=== PATIENT | male | born 1970 | race Caucasian/White ===

== ENCOUNTER → 2021-07-18 | Outpatient (CLI) | payer BC ==
[2021-07-18 16:20] LABS: African American GFR (CKD) >90 (>60 ml/min/1.73 sqM); Blood Urea Nitrogen 14 mg/dL (9-20); Non-African American GFR(CKD) >90 (>60 ml/min/1.73 sqM)
--- NOTE | 2021-07-19 08:03 | CT ---
EXAMINATION TYPE: CT abdomen pelvis wo/w con DATE OF EXAM: 07/18/2021 COMPARISON: None HISTORY: Abdominal pain, constipation CT DLP: 1893.10 mGycm CONTRAST: CT scan of the abdomen and pelvis is performed with Oral Contrast and with IV Contrast, patient injec jarvis with 100 mL of Isovue 300. FINDINGS: LUNG BASES-: No visible nodule. No infiltrate. LIVER/GB: No calcified gallstones. No space occupying hepatic lesion. Biliary tree is of normal ca liber. PANCREAS: No inflammation. No distinct mass. SPLEEN: No splenic enlargement. No lesion seen. ADRENALS: No nodule. No thickening. KIDNEYS/BLADDER: No hydronephrosis. No nephrolithiasis. No distinct renal mass. Urinary bladder wa ll thickening may be related to poor distention. Correlate for cystitis. BOWEL: Normal appendix. Normal bowel caliber. No inflammation. Mild fecal stasis noted. GENITAL ORGANS: No gross abnormality. LYMPH NODES: No greater than 1cm abdominal or pelvic lymph nodes are appreciated. AORTA: No significant abnormality. OSSEOUS STRUCTURES: No significant abnormality is seen. OTHER: No significant additional abnormality is seen. IMPRESSION: 1. Mild constipation. 2. Urinary bladder wall thickening. Correlate for cystitis.
== END | disposition home or self-care (01) ==
LOC: RADCTMAIN 15:13
PROVIDERS: ATTEND Family Medicine
DX: K59.00 Constipation, unspecified (principal); N32.89 Other specified disorders of bladder
CPT/HCPCS: 82565; 84520; 74178; 36415; Q9967

== ENCOUNTER → 2022-02-05 | Outpatient (CLI) | payer BC ==
--- NOTE | 2022-02-05 15:41 | XR ---
EXAMINATION TYPE: XR lumbar spine 2 or 3V DATE OF EXAM: 02/05/2022 COMPARISON: None HISTORY: Back pain TECHNIQUE: 3 view lumbar spine FINDINGS: There 5 lumbar-type vertebral bodies. Pedicles are intact. There is loss of disc at L4-5. R emaining disc heights are preserved. Vertebral body heights are preserved. IMPRESSION: 1. Degenerative disc changes L4-5.
--- NOTE | 2022-02-05 15:44 | XR ---
EXAMINATION TYPE: XR thoracic spine complete DATE OF EXAM: 02/05/2022 COMPARISON: None HISTORY: Back pain TECHNIQUE: 3 view thoracic spine FINDINGS: There are 12 thoracic type vertebral bodies. The pedicles are intact. Disc heights are pres erved. Vertebral body heights are preserved. IMPRESSION: 1. Normal three-view thoracic spine
== END | disposition home or self-care (01) ==
LOC: RADXRMAIN 14:43
PROVIDERS: ATTEND Student in an Organized Health Care Education/Training Program
DX: M51.36 Other intervertebral disc degeneration, lumbar region (principal)
CPT/HCPCS: 72072; 72100

== ENCOUNTER → 2022-11-18 | Outpatient (CLI) | payer BC ==
--- NOTE | 2022-11-18 08:51 | US ---
EXAMINATION TYPE: US abdomen complete DATE OF EXAM: 11/18/2022 COMPARISON: CT abdomen and pelvis July 18, 2021 CLINICAL HISTORY: K58.1 IRRITABLE BOWEL SYNDROME ,R14.0 GASEOUS. Patient states he gets generalized r ight and left sided pain that comes and goes. TECHNIQUE: Multiple sonographic images of the abdomen are obtained. FINDINGS: EXAM MEASUREMENTS: Liver Length: 15.4 cm Gallbladder Wall: 0.2 cm CBD: 0.4 cm Spleen: 10.3 cm Right Kidney: 10.8 x 5.2 x 6.1 cm Left Kidney: 10.6 x 4.9 x 5.7 cm Pancreas: Tail obscured by overlying bowel gas Liver: wnl Gallbladder: wnl Evidence for sonographic Juárez's sign: neg CBD: wnl Spleen: wnl Right Kidney: No hydronephrosis or masses seen Left Kidney: No hydronephrosis or masses seen Upper IVC: wnl Abd Aorta: No AAA visualized at time of exam The visualized liver is homogenous. The intrahepatic portion of the IVC and visualized abdominal aor ta are within normal limits. There is no evidence of shadowing mobile cholelithiasis. Common bile d uct is unremarkable. The visualized portions of the pancreas are homogenous. The spleen is unremark able. Kidneys are symmetric and free of hydronephrosis. No renal lesions are seen. IMPRESSION: No acute findings are evident.
== END | disposition home or self-care (01) ==
LOC: RADUSWWP 06:57
PROVIDERS: ATTEND Student in an Organized Health Care Education/Training Program
DX: K58.1 Irritable bowel syndrome with constipation (principal); R14.0 Abdominal distension (gaseous)
CPT/HCPCS: 76700

== ENCOUNTER → 2023-05-27 | Outpatient (CLI) | payer BC ==
[2023-05-27 14:51] LABS: African American GFR (CKD) >90 (>60 ml/min/1.73 sqM); Blood Urea Nitrogen 17 mg/dL (9-20); Non-African American GFR(CKD) >90 (>60 ml/min/1.73 sqM)
--- NOTE | 2023-05-28 06:53 | CT ---
EXAMINATION TYPE: CT soft tissue neck w con CT DLP: 385.8 mGycm, Automated exposure control for dose reduction was used. DATE OF EXAM: 05/27/2023 3:23 PM COMPARISON: Soft tissue neck radiograph 12/22/2022. CLINICAL INDICATION:Male, 52 years old with history of J35.3; PHH, pt states feels like something is stuck in throat TECHNIQUE: Standard enhanced CT of the neck following intravenous administration of 100 cc of Isovue 300. Axial sections with coronal and sagittal reformats were obtained. FINDINGS: Brain: Visualized portions are grossly unremarkable. 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 The mastoid air cells are clear. Remaining paranasal sinuses are clear. Suprahyoid Neck: The oropharynx, oral cavity, parapharyngeal and retropharyngeal spaces are clear and symmetric. The nasopharynx is unremarkable. Infrahyoid Neck: The larynx, hypopharynx, and supraglottic area are clear and symmetric. Parotid Glands: Unremarkable. Submandibular Glands: Unremarkable. Musculoskeletal: No acute osseous pathology. Lymph nodes: Multiple nonenlarged lymph nodes are seen along both anterior chains of the neck. Vascular structures: Minimal atherosclerotic calcifications of the internal carotid arteries. Thoracic Inlet/airway: Airway is patent. No radiopaque foreign body identified. Mild paraseptal emphy sematous changes. Soft tissues/Thyroid: Thyroid and remainder of the soft tissues are unremarkable. Other: none. IMPRESSION No definite evidence for significant abnormality. No radiopaque foreign body identified.
== END | disposition home or self-care (01) ==
LOC: RADCTMAIN 13:45
PROVIDERS: ATTEND Otolaryngology
DX: J35.3 Hypertrophy of tonsils with hypertrophy of adenoids (principal)
CPT/HCPCS: 82565; 84520; 70491; 36415; Q9967

== ENCOUNTER 2024-05-06 14:03 | Observation (INO) | payer BC ==
--- NOTE | 2024-05-06 14:23 | ED ---
General Adult HPI - General Chief complaint: Neuro Symptoms/Deficit Stated complaint: L arm numbness, Chest pain Time Seen by Provider: 05/06/24 14:11 Source: patient, RN notes reviewed Mode of arrival: ambulatory Limitations: no limitations - History of Present Illness Initial comments: Patient is a 53-year-old male presenting to the emergency department as a transfer from urgent care. Patient has had left arm paresthesia all day today. Patient states no discomfort of his arm. Patient states there is a little bit of tightness of his left neck. On further discussion patient admits that the left upper chest may be a little bit tight as well. No weakness. No headache. No confusion. No speech problems. No history of similar symptoms previously. - Related Data Home Medications Medication Instructions Recorded Confirmed Atenolol/Chlorthalidone 1 tab PO DAILY 05/06/24 05/06/24 [Atenolol/Chlorthalidone 50-25] Budesonide/Formoterol Fumarate 1 puff INHALATION RT-DAILY 05/06/24 05/06/24 [Symbicort 160-4.5 Mcg Inhaler] Dicyclomine [Bentyl] 10 mg PO TID PRN 05/06/24 05/06/24 Linagliptin [Tradjenta] 5 mg PO DAILY 05/06/24 05/06/24 Omeprazole [PriLOSEC] 20 mg PO DAILY 05/06/24 05/06/24 Rosuvastatin Calcium [Crestor] 40 mg PO HS 05/06/24 05/06/24 lisinopriL [Zestril] 2.5 mg PO DAILY 05/06/24 05/06/24 Allergies Allergy/AdvReac Type Severity Reaction Status Date / Time Penicillins AdvReac Unknown Verified 05/06/24 15:26 Childhood Review of Systems ROS Statement: Those systems with pertinent positive or pertinent negative responses have been documented in the HPI. ROS Other: All systems not noted in ROS Statement are negative. Constitutional: Denies: fever Eyes: Denies: eye pain ENT: Denies: ear pain Respiratory: Denies: cough Cardiovascular: Reports: as per HPI, chest pain Endocrine: Denies: fatigue Gastrointestinal: Denies: abdominal pain Genitourinary: Denies: dysuria Musculoskeletal: Denies: back pain Neurological: Reports: as per HPI, paresthesias. Denies: headache, weakness Past Medical History Past Medical History: Hyperlipidemia, Hypertension History of Any Multi-Drug Resistant Organisms: None Reported Past Surgical History: Tonsillectomy Past Psychological History: No Psychological Hx Reported Smoking Status: Never smoker Past Alcohol Use History: Occasional Past Drug Use History: Marijuana General Exam Limitations: no limitations General appearance: alert, in no apparent distress Head exam: Present: normocephalic Eye exam: Present: normal appearance, PERRL, EOMI ENT exam: Present: normal oropharynx Neck exam: Present: normal inspection Respiratory exam: Present: normal lung sounds bilaterally Cardiovascular Exam: Present: regular rate, normal rhythm Expanded Peripheral pulses: 2+: Radial (R), Radial (L), Posterior Tibialis (R), Posterior Tibialis (L) GI/Abdominal exam: Present: soft. Absent: tenderness Extremities exam: Present: normal inspection. Absent: pedal edema, calf tenderness Neurological exam: Present: alert, oriented X3, CN II-XII intact. Absent: motor sensory deficit Expanded Neurological exam: Present: protecting the airway Speech: Present: fluid speech Cranial nerves: EOM's Intact: Normal, Facial Sensation: Normal Cerebellar function: Finger to Nose: Normal Sensory exam: Upper Extremity Light Touch: Normal, Lower Extremity Light Touch: Normal Motor strength exam: RUE: 5, LUE: 5, RLE: 5, LLE: 5 Eye Response: (4) open spontaneously Motor Response: (6) obeys commands Verbal Response: (5) oriented Psychiatric exam: Present: normal affect, normal mood Skin exam: Present: normal color Course Vital Signs 05/06/24 05/06/24 05/06/24 14:05 14:14 15:20 Temperature 97.9 F 98.1 F Pulse Rate 78 72 65 Respiratory 20 18 17 Rate Blood Pressure 133/84 155/85 146/83 O2 Sat by Pulse 99 99 99 Oximetry EKG Findings - EKG Results: EKG: interpreted by ERMD (Incomplete right bundle branch block. nonspecific ST-T.), sinus rhythm, normal axis Medical Decision Making - Medical Decision Making Was pt. sent in by a medical professional or institution (, PA, GRAVITY PROSPECTING OPERATOR HELPER, urgent care, hospital, or retirement...) When possible be specific @ -Patient was sent by urgent care Did you speak to anyone other than the patient for history (EMS, parent, family, police, friend...)? What history was obtained from this source @ -Family is present helps provide history including presentation at urgent c are Did you review nursing and triage notes (agree or disagree)? Why? @ -I reviewed and agree with nursing and triage notes Were old charts reviewed (outside hosp., previous admission, EMS record, old EKG, old radiological studies, urgent care reports/EKG's, retirement records)? Report findings @ -No old charts were reviewed Differential Diagnosis (chest pain, altered mental status, abdominal pain women, abdominal pain men, vaginal bleeding, weakness, fever, dyspnea, syncope, headache, dizziness, GI bleed, back pain, seizure, CVA, palpatations, mental health, musculoskeletal)? @ -MDM differential chest pain. MDM differential weakness differential Chest Pain: Stable Angina, Unstable Angina, STEMI, NSTEMI Aortic Dissection, Pneumothorax, Musculoskeletal, Esophageal Spasm GERD, Cholecystitis, Pancreatitis, Zoster, this is not meant to be an all-inclusive list. Differential Weakness: Hypoglycemia, shock, sepsis, hyponatremia, anemia, infection, HI, ETOH, adverse medicine reaction, overdose, stroke, this is not meant to be an all-inclusive list. EKG interpreted by me (3pts min.). @ -As above X-rays interpreted by me (1pt min.). @ -X-ray shows no acute process CT interpreted by me (1pt min.). @ -CT scan of the brain does not reveal acute abnormality U/S interpreted by me (1pt. min.). @ -None done What testing was considered but not performed or refused? (CT, X-rays, U/S, labs)? Why? @ -None What meds were considered but not given or refused? Why? @ -None Did you discuss the management of the patient with other professionals (professionals i.e. DrDayan, PA, GRAVITY PROSPECTING OPERATOR HELPER, lab, RT, psych nurse, social media marketer, fairground operator, teacher, infantry officer, vocational case manager)? Give summary @ -Case discussed with Dr. Ojeda who will admit covering hospital call Was smoking cessation discussed for >3mins.? @ -No Was critical care preformed (if so, how long)? @ -No Were there social determinants of health that impacted care today? How? (Homelessness, low income, unemployed, alcoholism, drug addiction, transportation, low edu. Level, literacy, decrease access to med. care, senior living, rehab)? @ -No Was there de-escalation of care discussed even if they declined (Discuss DNR or withdrawal of care, Hospice)? DNR status @ -No What co-morbidities impacted this encounter? (DM, HTN, Smoking, COPD, CAD, Cancer, CVA, ARF, Chemo, Hep., AIDS, mental health diagnosis, sleep apnea, morbid obesity)? @ -None Was patient admitted / discharged? Hospital course, mention meds given and route, prescriptions, significant lab abnormalities, going to OR and other pertinent info. @ -Patient reevaluated. Patient and family are updated on results and plan. Patient presents with chest tightness and paresthesia left arm. Patient will be admitted. Admission orders written. Undiagnosed new problem with uncertain prognosis? @ -No Drug Therapy requiring intensive monitoring for toxicity (Heparin, Nitro, Insulin, Cardizem)? @ -No Were any procedures done? @ -No Diagnosis/symptom? @ -Chest tightness Acute, or Chronic, or Acute on Chronic? @ -Acute Uncomplicated (without systemic symptoms) or Complicated (systemic symptoms)? @ -Default Side effects of treatment? @ -No Exacerbation, Progression, or Severe Exacerbation? @ -No Poses a threat to life or bodily function? How? (Chest pain, USA, HI, pneumonia, PE, COPD, DKA, ARF, appy, cholecystitis, CVA, Diverticulitis, Homicidal, Suicidal, threat to staff... and all critical care pts) @ -No - Lab Data Result diagrams: 05/06/24 14:29 05/06/24 14:29 Lab Results 05/06/24 05/06/24 05/06/24 Range/Units 14:29 14:29 14:29 WBC 10.5 (3.8-10.6) k/uL RBC 5.02 (4.30-5.90) m/uL Hgb 15.2 (13.0-17.5) gm/dL Hct 46.4 (39.0-53.0) % MCV 92.5 (80.0-100.0) fL MCH 30.3 (25.0-35.0) pg MCHC 32.8 (31.0-37.0) g/dL RDW 12.1 (11.5-15.5) % Plt Count 278 (150-450) k/uL MPV 8.9 Neutrophils % 70 % Lymphocytes % 21 % Monocytes % 6 % Eosinophils % 1 % Basophils % 1 % Neutrophils # 7.4 (1.3-7.7) k/uL Lymphocytes # 2.2 (1.0-4.8) k/uL Monocytes # 0.6 (0-1.0) k/uL Eosinophils # 0.1 (0-0.7) k/uL Basophils # 0.1 (0-0.2) k/uL PT 10.0 (10.0-12.5) sec INR 0.9 (<1.2) APTT 22.4 (22.0-30.0) sec D-Dimer 0.23 (<0.60) mg/L FEU Sodium 136 L (137-145) mmol/L Potassium 3.6 (3.5-5.1) mmol/L Chloride 100 (98-107) mmol/L Carbon Dioxide 23 (22-30) mmol/L Anion Gap 13 mmol/L BUN 19 (9-20) mg/dL Creatinine 0.89 (0.66-1.25) mg/dL Est GFR (CKD-EPI)AfAm >90 (>60 ml/min/1.73 sqM) Est GFR (CKD-EPI)NonAf >90 (>60 ml/min/1.73 sqM) Glucose 119 H (74-99) mg/dL Calcium 10.0 (8.4-10.2) mg/dL Magnesium 1.7 (1.6-2.3) mg/dL Total Bilirubin 0.8 (0.2-1.3) mg/dL AST 31 (17-59) U/L ALT 31 (4-49) U/L Alkaline Phosphatase 68 (38-126) U/L Troponin I (0.000-0.034) ng/mL Total Protein 7.5 (6.3-8.2) g/dL Albumin 5.1 H (3.5-5.0) g/dL 05/06/24 Range/Units 14:29 WBC (3.8-10.6) k/uL RBC (4.30-5.90) m/uL Hgb (13.0-17.5) gm/dL Hct (39.0-53.0) % MCV (80.0-100.0) fL MCH (25.0-35.0) pg MCHC (31.0-37.0) g/dL RDW (11.5-15.5) % Plt Count (150-450) k/uL MPV Neutrophils % % Lymphocytes % % Monocytes % % Eosinophils % % Basophils % % Neutrophils # (1.3-7.7) k/uL Lymphocytes # (1.0-4.8) k/uL Monocytes # (0-1.0) k/uL Eosinophils # (0-0.7) k/uL Basophils # (0-0.2) k/uL PT (10.0-12.5) sec INR (<1.2) APTT (22.0-30.0) sec D-Dimer (<0.60) mg/L FEU Sodium (137-145) mmol/L Potassium (3.5-5.1) mmol/L Chloride (98-107) mmol/L Carbon Dioxide (22-30) mmol/L Anion Gap mmol/L BUN (9-20) mg/dL Creatinine (0.66-1.25) mg/dL Est GFR (CKD-EPI)AfAm (>60 ml/min/1.73 sqM) Est GFR (CKD-EPI)NonAf (>60 ml/min/1.73 sqM) Glucose (74-99) mg/dL Calcium (8.4-10.2) mg/dL Magnesium (1.6-2.3) mg/dL Total Bilirubin (0.2-1.3) mg/dL AST (17-59) U/L ALT (4-49) U/L Alkaline Phosphatase (38-126) U/L Troponin I <0.012 (0.000-0.034) ng/mL Total Protein (6.3-8.2) g/dL Albumin (3.5-5.0) g/dL Disposition Clinical Impression: Chest tightness Disposition: ADMITTED IP TO THIS HOSP Is patient prescribed a controlled substance at d/c from ED?: No Referrals: Brandan Brand DO [Primary Care Provider] - 1-2 days Time of Disposition: 16:19
--- NOTE | 2024-05-06 14:58 | CT ---
EXAMINATION TYPE: CT brain wo con DATE OF EXAM: 05/06/2024 COMPARISON: 04/01/2014 HISTORY: L arm parasthesia CT DLP: 1125.[address] of the brain was performed. The ventricles, basal cisterns and sulci overlying the cerebral convexities demonstrate mild enlargem ent. There is no evidence for intracranial hemorrhage or sulcal effacement. There is decreased attenuation about the periventricular white matter and deep white matter of both c erebral hemispheres, compatible with chronic small vessel ischemia. Differential diagnosis does inclu de demyelination. No mass effects are seen.No midline shift. Osseous calvarium is intact. If symptoms persist consider MRI. IMPRESSION: 1. Age related atrophic and chronic small vessel ischemic change without acute intracranial process s een at this time.
[2024-05-06 15:09] LABS: Basophils # (A) 0.1 k/uL (0-0.2); Basophils % (A) 1 %; Eosinophils # (A) 0.1 k/uL (0-0.7); Eosinophils % (A) 1 %; HCT 46.4 % (39.0-53.0); HGB 15.2 gm/dL (13.0-17.5); Lymphocytes # (A) 2.2 k/uL (1.0-4.8); Lymphocytes % (A) 21 %; MCH 30.3 pg (25.0-35.0); MCHC 32.8 g/dL (31.0-37.0); MCV 92.5 fL (80.0-100.0); Mean Platelet Volume 8.9; Monocytes # (A) 0.6 k/uL (0-1.0); Monocytes % (A) 6 %; Neutrophils # (A) 7.4 k/uL (1.3-7.7); Neutrophils % (A) 70 %; Platelet Count 278 k/uL (150-450); RBC 5.02 m/uL (4.30-5.90); RDW 12.1 % (11.5-15.5); WBC 10.5 k/uL (3.8-10.6)
[2024-05-06 15:19] LABS: ALT 31 U/L (4-49); AST 31 U/L (17-59); African American GFR (CKD) >90 (>60 ml/min/1.73 sqM); Albumin 5.1 g/dL (3.5-5.0); Alkaline Phosphatase 68 U/L (38-126); Anion Gap 13 mmol/L; Blood Urea Nitrogen 19 mg/dL (9-20); Carbon Dioxide 23 mmol/L (22-30); Chloride 100 mmol/L (98-107); Glucose 119 mg/dL (74-99); Magnesium 1.7 mg/dL (1.6-2.3); Non-African American GFR(CKD) >90 (>60 ml/min/1.73 sqM); Potassium 3.6 mmol/L (3.5-5.1); Sodium 136 mmol/L (137-145); Total Bilirubin 0.8 mg/dL (0.2-1.3); Total Protein 7.5 g/dL (6.3-8.2)
--- NOTE | 2024-05-06 15:23 | XR ---
EXAMINATION TYPE: XR chest 2V DATE OF EXAM: 05/06/2024 HISTORY: Shortness of breath. COMPARISON: None. TECHNIQUE: Single view of the chest is submitted. FINDINGS: Demonstrated are scattered senescent parenchymal change. There is no evidence for focal infiltrate. The heart is stable. Hilar and mediastinal structures are within normal limits. Degenerative changes are seen of the dorsal spine. IMPRESSION: 1. Chronic changes without evidence for acute pulmonary disease.
[2024-05-06 15:27] LABS: INR 0.9 (<1.2); Partial Thromboplastin Time 22.4 sec (22.0-30.0)
[2024-05-06] MEDS ORDERED: NITROGLYCERIN SL TABS 0.4 MG TAB SUBLINGUAL PRN (16:19)
[2024-05-06] MEDS ORDERED: DICYCLOMINE 10 MG CAP PO PRN (16:21)
[2024-05-06] MEDS: ASPIRIN 81 MG PO STA (16:39)
[2024-05-06] MEDS: NITROGLYCERIN OINT 1 INCH/GM PACKET TOPICAL SCH (16:41)
[2024-05-06] MEDS ORDERED: DEXTROSE 50% SYRINGE 50 ML IVP PRN ×2 (17:14)
[2024-05-06 17:29] LABS: Glucose,Whole Blood 102 mg/dL (70-110)
[2024-05-06] MEDS: INSULIN ASPART (NovoLOG) 100 UNIT/ML VIAL SQ SCH (17:29)
[2024-05-06] MEDS: MAGNESIUM OXIDE 400 MG TAB PO STA (17:47)
--- NOTE | 2024-05-06 18:12 | P.HPIM ---
History of Present Illness H&P Date: 05/06/24 History of Presenting Illness: Patient is a 53-year-old male with a past medical history of hypertension, hyperlipidemia, GERD, and type II [id number] diabetes mellitus. He presented to the hospital via EMS as a transfer from urgent care where patient presented with left arm paresthesia/numbness accompanied by pain/tightness to left lateral neck and left anterior chest. Patient reports he began experiencing sudden onset left arm numbness/tingling extending throughout his entire arm patient reports this was persistent and did not resolve so he went to the urgent care for evaluation and was transferred to our facility for further recommendation via EMS. He states he also believes he may have had some tightness in his left neck/shoulder region radiating down into the left side of his chest but reports this was mild. He denied experiencing any weakness in his left arm but reports complete numbness with tingling sensation throughout. He denies any injuries or cervical pain/discomfort, headache, lightheadedness, dizziness, changes in vision or hearing, difficulties with or changes in speech, dysphagia, palpitations, shortness of breath, cough or congestion, back pain, nausea, vomiting, or experiencing any swelling or weakness in his extremities. Upon arrival to our facility, patient underwent evaluation in the emergency department. Vital signs upon arrival show blood pressure 133/84, heart rate 78, respiratory rate 20, temp 97.9 F, and SpO2 of 99% on room air. EKG was completed showing normal sinus rhythm at 71 bpm with an incomplete right bundle branch block with QRS duration of 100 ms and no noted T wave or ST abnormalities showing no signs of acute ischemia upon personal review and interpretation. Chest x-ray completed negative for acute cardiopulmonary process. CT brain completed negative for acute intracranial process revealing age-related atrophic and chronic small vessel ischemic changes. Labs completed and reviewed. CBC unremarkable. Coagulation profile normal findings. D-dimer negative at 0.23. BMP unremarkable. Blood glucose 119. Magnesium slightly low at 1.7. Liver profile unremarkable. And troponin was negative at less than 0.012. Patient was admitted under our services with consultation to cardiology and neurology. Review of systems: Pertinent positives and negatives as discussed in HPI, a complete review of systems was performed and all other systems are negative. Physical exam: Vital signs reviewed and stable. General: Nontoxic, no distress and appears stated age. Derm: Skin warm and dry, normal coloration for ethnicity. Head: Atraumatic, normocephalic and symmetric. Eyes: EOMs intact, no lid lag, and anicteric sclera Mouth: no lip lesions, mucus membranes moist Cardiovascular: regular rate and rhythm with normal S1S2, no murmur, positive posterior tibial pulses bilaterally, and cap refill < 2 seconds. Lungs: Respirations even, regular, and unlabored on room air. Lungs CTA bilaterally, no rhonchi, no rales, no wheezing, and no accessory muscle usage. Abdominal: soft, nontender to palpation, no guarding, no appreciable organomegaly Ext: ROM intact. No gross muscle atrophy, no edema, no contractures Neuro: Speech clear, face symmetrical and CN II-XII grossly intact with no noted focal neuro deficits Psych: Alert and oriented to person, place, time, and situation. Appropriate and pleasant affect. Assessment and Plan of Care: Left arm numbness and paresthesias Chest and neck tightness Hypertension Hyperlipidemia -Cardiology consulted, appreciate recommendations -Neurology consulted, appreciate recommendation -Telemetry monitoring -Trend troponins -Cardiac diet, NPO at midnight -Aspirin 81 mg daily, atenolol 50 mg daily, atorvastatin 80 mg nightly, lisinopril 2.5 mg daily, and sublingual nitro 0.4 mg tablets every 5 minutes as needed for chest pain. -Lipid profile and hemoglobin A1c with a.m. labs. -Echocardiogram Type 2 diabetes mellitus -Hold Tradjenta and place patient on glycemic protocol with NovoLog sliding scale. GERD -Continue GI prophylaxis with Protonix 40 mg daily. Data and imaging reviewed: -As stated above in HPI. The patient is admitted with an anticipated less than 2 midnight stay for evaluation of chest pain, neck pain, and left arm paresthesias CODE STATUS: Full code DVT prophylaxis: Heparin Anticipated discharge date: 24 to [address]: Home Patient was seen independently by Nurse Practitioner. This document was prepared using [employer] dictation software. Please allow for errors in professor of economics while rare they do occur. I reviewed the documentation as provided by the GARRISON above, who is the original author of this note. I agree with the documented assessment and plan, with the following changes: none Past Medical History Past Medical History: Hyperlipidemia, Hypertension History of Any Multi-Drug Resistant Organisms: None Reported Past Surgical History: Tonsillectomy Past Psychological History: No Psychological Hx Reported Smoking Status: Never smoker Past Alcohol Use History: Occasional Past Drug Use History: Marijuana Medications and Allergies Home Medications Medication Instructions Recorded Confirmed Type Atenolol/Chlorthalidone 1 tab PO DAILY 05/06/24 05/06/24 History [Atenolol/Chlorthalidone 50-25] Budesonide/Formoterol Fumarate 1 puff INHALATION RT-DAILY 05/06/24 05/06/24 History [Symbicort 160-4.5 Mcg Inhaler] Dicyclomine [Bentyl] 10 mg PO TID PRN 05/06/24 05/06/24 History Linagliptin [Tradjenta] 5 mg PO DAILY 05/06/24 05/06/24 History Omeprazole [PriLOSEC] 20 mg PO DAILY 05/06/24 05/06/24 History Rosuvastatin Calcium [Crestor] 40 mg PO HS 05/06/24 05/06/24 History lisinopriL [Zestril] 2.5 mg PO DAILY 05/06/24 05/06/24 History Ezetimibe [Zetia] 10 mg PO DAILY 30 Days #30 tab 05/09/24 Rx Thiamine [Vitamin B-1] 100 mg PO DAILY 30 Days #30 tab 05/09/24 Rx Allergies Allergy/AdvReac Type Severity Reaction Status Date / Time Penicillins AdvReac Unknown Verified 05/06/24 15:26 Childhood Physical Exam Vitals: Vital Signs Temp Pulse Resp BP Pulse Ox 05/06/24 15:20 98.1 F 65 17 146/83 99 05/06/24 14:14 72 18 155/85 99 05/06/24 14:05 97.9 F 78 20 133/84 99 Intake and Output 05/06/24 05/06/24 05/06/24 06:59 14:59 22:59 Other: Weight 112.037 kg Results CBC & Chem 7: 05/09/24 07:01 05/09/24 07:01 Labs: Abnormal Lab Results - Last 24 Hours (Table) 05/06/24 Range/Units 14:29 Sodium 136 L (137-145) mmol/L Glucose 119 H (74-99) mg/dL Albumin 5.1 H (3.5-5.0) g/dL
[2024-05-06] MEDS: ATORVASTATIN 80 MG TAB PO SCH (20:07)
[2024-05-06 21:02] LABS: Glucose,Whole Blood 123 mg/dL (70-110)
[2024-05-07] MEDS: HEPARIN SODIUM,PORCINE 5,000 UNIT/ML 1 ML VIAL SQ SCH (00:31)
[2024-05-07 07:30] LABS: Glucose,Whole Blood 132 mg/dL (70-110)
[2024-05-07] MEDS: SYMBICORT 160-4.5 MCG INHALER INHALATION SCH (08:04)
[2024-05-07] MEDS ORDERED: ASPIRIN 325 MG TAB PO SCH (09:00)
[2024-05-07] MEDS ORDERED: LINAGLIPTIN 5 MG TABLET PO SCH (09:00)
[2024-05-07] MEDS: ASPIRIN 81 MG PO SCH (09:25)
[2024-05-07] MEDS: atenoloL 50 MG TAB PO SCH (09:25)
[2024-05-07] MEDS: PANTOPRAZOLE 40 MG TABLET PO SCH (09:26)
[2024-05-07 10:26] LABS: African American GFR (CKD) >90 (>60 ml/min/1.73 sqM); Anion Gap 4 mmol/L; Blood Urea Nitrogen 16 mg/dL (9-20); Calcium 9.6 mg/dL (8.4-10.2); Carbon Dioxide 32 mmol/L (22-30); Chloride 100 mmol/L (98-107); Glucose 126 mg/dL (74-99); Non-African American GFR(CKD) >90 (>60 ml/min/1.73 sqM); Potassium 3.9 mmol/L (3.5-5.1); Sodium 136 mmol/L (137-145)
[2024-05-07 10:36] LABS: HCT 47.2 % (39.0-53.0); HGB 15.6 gm/dL (13.0-17.5); MCH 30.3 pg (25.0-35.0); MCHC 33.1 g/dL (31.0-37.0); MCV 91.7 fL (80.0-100.0); Mean Platelet Volume 9.5; Platelet Count 260 k/uL (150-450); RBC 5.15 m/uL (4.30-5.90); RDW 12.5 % (11.5-15.5)
--- NOTE | 2024-05-07 11:23 | P.CRDCN ---
History of Present Illness Consult date: 05/07/24 Requesting physician: Tulio Gastelum Reason for Consult (text): cp Chief complaint: left arm numbness/tingling History of present illness: This a pleasant 53-year-old gentleman with no past cardiac history. Has a history of hypertension, hyperlipidemia and prediabetes. He presented with com plaints of left arm numbness and tingling that started yesterday morning after he got out of bed. He had also noted some mild tightness in his left neck and shoulder area. Denies any complaints of chest discomfort. He has had no shortness of breath, dizziness, lightheadedness or syncope. He has had no palpitations. He has had no orthopnea or PND and no edema. Opponents have been negative x 3 and EKG was unremarkable. Overall his symptoms in his arm have mostly subsided. Vital signs have been stable. Past Medical History Past Medical History: Hyperlipidemia, Hypertension History of Any Multi-Drug Resistant Organisms: None Reported Past Surgical History: Tonsillectomy Past Psychological History: No Psychological Hx Reported Smoking Status: Never smoker Past Alcohol Use History: Occasional Past Drug Use History: Marijuana Medications and Allergies Home Medications Medication Instructions Recorded Confirmed Type Atenolol/Chlorthalidone 1 tab PO DAILY 05/06/24 05/06/24 History [Atenolol/Chlorthalidone 50-25] Budesonide/Formoterol Fumarate 1 puff INHALATION RT-DAILY 05/06/24 05/06/24 History [Symbicort 160-4.5 Mcg Inhaler] Dicyclomine [Bentyl] 10 mg PO TID PRN 05/06/24 05/06/24 History Linagliptin [Tradjenta] 5 mg PO DAILY 05/06/24 05/06/24 History Omeprazole [PriLOSEC] 20 mg PO DAILY 05/06/24 05/06/24 History Rosuvastatin Calcium [Crestor] 40 mg PO HS 05/06/24 05/06/24 History lisinopriL [Zestril] 2.5 mg PO DAILY 05/06/24 05/06/24 History Allergies Allergy/AdvReac Type Severity Reaction Status Date / Time Penicillins AdvReac Unknown Verified 05/06/24 15:26 Childhood Physical Exam Vitals: Vital Signs Temp Pulse Resp BP Pulse Ox 05/07/24 09:19 63 18 122/83 97 05/07/24 06:23 71 18 126/71 100 05/07/24 04:05 65 18 124/79 95 05/07/24 00:34 62 18 112/71 98 05/06/24 21:46 64 18 132/75 99 05/06/24 18:25 98.2 F 75 17 130/70 98 05/06/24 17:25 98.4 F 65 17 140/87 99 05/06/24 16:00 63 16 136/82 99 05/06/24 15:20 98.1 F 65 17 146/83 99 05/06/24 14:14 72 18 155/85 99 05/06/24 14:05 97.9 F 78 20 133/84 99 PHYSICAL EXAMINATION: This is a 53-year-old gentleman in no apparent distress at the time of my examination. VITAL SIGNS: Reviewed. HEENT: Head is atraumatic, normocephalic. Pupils are equal, round. Sclerae anicteric. Conjunctivae are clear. Mucous membranes of the mouth are moist. Neck is supple. There is no elevated jugular venous pressure. No carotid bruit is heard. CHEST EXAMINATION: Clear to auscultation bilaterally. No wheezes rales or rhonchi. Respirations even and nonlabored. HEART EXAMINATION: Heart regular, positive S1 and S2. No S3. No S4. No clicks, rubs or murmurs. ABDOMEN: Soft, nontender. Bowel sounds are heard. No organomegaly noted. EXTREMITIES: 2+ peripheral pulses with no evidence of peripheral edema and no calf tenderness noted. NEUROLOGIC EXAMINATION: Patient is awake, alert and oriented x3. Results 05/07/24 09:10 05/07/24 09:10 Cardiac Enzymes 05/06/24 05/06/24 05/06/24 Range/Units 14:29 14:29 17:19 AST 31 (17-59) U/L Troponin I <0.012 <0.012 (0.000-0.034) ng/mL 05/06/24 Range/Units 20:23 AST (17-59) U/L Troponin I <0.012 (0.000-0.034) ng/mL Coagulation 05/06/24 Range/Units 14:29 PT 10.0 (10.0-12.5) sec APTT 22.4 (22.0-30.0) sec CBC 05/06/24 05/07/24 Range/Units 14:29 09:10 WBC 10.5 7.0 (3.8-10.6) k/uL RBC 5.02 5.15 (4.30-5.90) m/uL Hgb 15.2 15.6 (13.0-17.5) gm/dL Hct 46.4 47.2 (39.0-53.0) % Plt Count 278 260 (150-450) k/uL Comprehensive Metabolic Panel 05/06/24 05/07/24 Range/Units 14:29 09:10 Sodium 136 L 136 L (137-145) mmol/L Potassium 3.6 3.9 (3.5-5.1) mmol/L Chloride 100 100 (98-107) mmol/L Carbon Dioxide 23 32 H (22-30) mmol/L BUN 19 16 (9-20) mg/dL Creatinine 0.89 0.83 (0.66-1.25) mg/dL Glucose 119 H 126 H (74-99) mg/dL Calcium 10.0 9.6 (8.4-10.2) mg/dL AST 31 (17-59) U/L ALT 31 (4-49) U/L Alkaline Phosphatase 68 (38-126) U/L Total Protein 7.5 (6.3-8.2) g/dL Albumin 5.1 H (3.5-5.0) g/dL Current Medications Generic Name Dose Route Start Last Admin Trade Name Freq PRN Reason Stop Dose Admin Aspirin 81 mg 05/07/24 09:00 05/07/24 09:25 Aspirin 81 Mg PO 81 mg DAILY NICOLE Administration Atenolol 50 mg 05/07/24 09:00 05/07/24 09:25 Atenolol 50 Mg Tab PO 50 mg DAILY NICOLE Administration Atorvastatin Calcium 80 mg 05/06/24 21:00 05/06/24 20:07 Atorvastatin 80 Mg Tab PO 80 mg HS NICOLE Administration Budesonide/Formoterol Fumarate 1 puff 05/07/24 08:00 05/07/24 08:04 Symbicort 160-4.5 Mcg Inhaler INHALATION 1 puff RT-DAILY NICOLE Administration Dextrose/Water 25 ml 05/06/24 17:14 Dextrose 50% Syringe 50 Ml IVP PER PROTOCOL PRN Hypoglycemia Protocol Dextrose/Water 50 ml 05/06/24 17:14 Dextrose 50% Syringe 50 Ml IVP PER PROTOCOL PRN Hypoglycemia Protocol Dicyclomine HCl 10 mg 05/06/24 16:21 Dicyclomine 10 Mg Cap PO TID PRN GI Upset Heparin Sodium (Porcine) 5,000 unit 05/07/24 00:00 05/07/24 09:17 Heparin Sodium,Porcine 5,000 Unit/Ml 1 Ml Vial SQ Not Given Q8HR NICOLE Insulin Aspart 0 unit 05/06/24 17:30 05/07/24 08:24 Insulin Aspart (Novolog) 100 Unit/Ml Vial SQ Not Given ACHS [facility] Protocol Lisinopril 2.5 mg 05/07/24 09:00 05/07/24 09:25 Lisinopril 2.5 Mg Tab PO 2.5 mg DAILY NICOLE Administration Nitroglycerin 0.4 mg 05/06/24 16:19 Nitroglycerin Sl Tabs 0.4 Mg Tab SUBLINGUAL Q5M PRN Chest Pain Nitroglycerin 0.5 inch 05/06/24 16:30 05/07/24 09:52 Nitroglycerin Oint 1 Inch/Gm Packet TOPICAL Not Given Q6H NICOLE Pantoprazole Sodium 40 mg 05/07/24 09:00 05/07/24 09:26 Pantoprazole 40 Mg Tablet PO 40 mg DAILY NICOLE Administration 05/07/24 09:10 05/07/24 09:10 Assessment and Plan Assessment: #1 left arm numbness and tingling, neurology has been consulted, could be related to cervical radiculopathy #2 left neck tightness, acute coronary event has been ruled out, troponins negative x 3 and EKG unremarkable #3 hypertension, well-controlled #4 hyperlipidemia #5 prediabetes Plan: From cardiology's perspective we will obtain a 2D echo with Doppler study to assess cardiac structure and function. If there are no significant abnormalit ies patient may be discharged home and follow-up as an outpatient for further cardiac workup. [employer] note has been reviewed, I agree with a documented findings and plan of care. Patient was seen and examined.
[2024-05-07 12:04] LABS: Glucose,Whole Blood 180 mg/dL (70-110)
--- NOTE | 2024-05-07 12:46 | P.PN ---
Subjective Progress Note Date: 05/07/24 Hospital Course: Patient is a 53-year-old male with a past medical history of hypertension, hyperlipidemia, GERD, and type II [id number] diabetes mellitus. He presented to the hospital via EMS as a transfer from urgent care where patient presented with left arm paresthesia/numbness accompanied by pain/tightness to left lateral neck and left anterior chest. Patient reports he began experiencing sudden onset left arm numbness/tingling extending throughout his entire arm patient reports this was persistent and did not resolve so he went to the urgent care for evaluation and was transferred to our facility for further recommendation via EMS. He states he also believes he may have had some tightness in his left neck/shoulder region radiating down into the left side of his chest but reports this was mild. He denied experiencing any weakness in his left arm but reports complete numbness with tingling sensation throughout. He denies any injuries or cervical pain/discomfort, headache, lightheadedness, dizziness, changes in vision or hearing, difficulties with or changes in speech, dysphagia, palpitations, shortness of breath, cough or congestion, back pain, nausea, vomiting, or experiencing any swelling or weakness in his extremities. U ritchie arrival to our facility, patient underwent evaluation in the emergency department. Vital signs upon arrival show blood pressure 133/84, heart rate 78, respiratory rate 20, temp 97.9 F, and SpO2 of 99% on room air. EKG was completed showing normal sinus rhythm at 71 bpm with an incomplete right bundle branch block with QRS duration of 100 ms and no noted T wave or ST abnormalities showing no signs of acute ischemia upon personal review and interpretation. Chest x-ray completed negative for acute cardiopulmonary process. CT brain completed negative for acute intracranial process revealing age-related atrophic and chronic small vessel ischemic changes. Labs completed and reviewed. CBC unremarkable. Coagulation profile normal findings. D-dimer negative at 0.23. BMP unremarkable. Blood glucose 119. Magnesium slightly low at 1.7. Liver profile unremarkable. And troponin was negative at less than 0.012. Patient was admitted under our services with consultation to cardiology and neurology. Physical exam: Patient seen and fully evaluated at the bedside this morning. He denies any further episodes of chest or neck tightness reports continues to have a "funny feeling" in his left hand and fingers. Continues to deny weakness or any other complaints at this time. Vital signs reviewed and stable. General: Nontoxic, no distress and appears stated age. Derm: Skin warm and dry, normal coloration for ethnicity. Head: Atraumatic, normocephalic and symmetric. Eyes: EOMs intact, no lid lag, and anicteric sclera Mouth: no lip lesions, mucus membranes moist Cardiovascular: regular rate and rhythm with normal S1S2, no murmur, positive posterior tibial pulses bilaterally, and cap refill < 2 seconds. Lungs: Respirations even, regular, and unlabored on room air. Lungs CTA bilaterally, no rhonchi, no rales, no wheezing, and no accessory muscle usage. Abdominal: soft, nontender to palpation, no guarding, no appreciable o rganomegaly Ext: ROM intact. No gross muscle atrophy, no edema, no contractures Neuro: Speech clear, face symmetrical and CN II-XII grossly intact with no noted focal neuro deficits Psych: Alert and oriented to person, place, time, and situation. Appropriate and pleasant affect. Assessment and Plan of Care: Left arm numbness and paresthesias Chest and neck tightness Hypertension Hyperlipidemia -Cardiology consulted, appreciate recommendations -Neurology consulted, appreciate recommendation -Telemetry monitoring -Troponins were negative at less than 0.012 x 3 draws. -Cardiac diet -Aspirin 81 mg daily, atenolol 50 mg daily, atorvastatin 80 mg nightly, lisinopril 2.5 mg daily, and sublingual nitro 0.4 mg tablets every 5 minutes as needed for chest pain. -Lipid profile and hemoglobin A1c pending. -Echocardiogram Type 2 diabetes mellitus -Hold Tradjenta and place patient on glycemic protocol with NovoLog sliding scale. GERD -Continue GI prophylaxis with Protonix 40 mg daily. Data and imaging reviewed: -Vital signs reviewed and stable. Blood pressure 122/83, heart rate 63, respiratory rate 18, and SpO2 of 97% on room air. -Morning labs completed and reviewed. CBC unremarkable. BMP revealing hypercarbia with bicarb of 32 otherwise normal findings. Blood glucose 126. Magnesium 2.0. Troponins were trended overnight and all were negative at less than 0.012 x 3 draws. CODE STATUS: Full code DVT prophylaxis: Heparin Anticipated discharge date: 24 to [address]: Home Patient was seen independently by Nurse Practitioner. This document was prepared using [employer] dictation software. Please allow for errors in carbon rod inserter while rare they do occur. I reviewed the documentation as provided by the GARRISON above, who is the original author of this note. I agree with the documented assessment and plan, with the following changes: none Objective - Vital Signs Vital signs: Vital Signs Temp 98.2 F 05/06/24 18:25 Pulse 71 05/07/24 06:23 Resp 18 05/07/24 06:23 BP 126/71 05/07/24 06:23 Pulse Ox 100 05/07/24 06:23 FiO2 Intake & Output 05/06/24 05/07/24 05/07/24 18:59 06:59 18:59 Weight 112.037 kg - Labs CBC & Chem 7: 05/09/24 07:01 05/09/24 07:01 Labs: Abnormal Lab Results - Last 24 Hours (Table) 05/06/24 05/06/24 05/07/24 Range/Units 14:29 21:00 07:28 Sodium 136 L (137-145) mmol/L Glucose 119 H (74-99) mg/dL POC Glucose (mg/dL) 123 H 132 H (70-110) mg/dL Albumin 5.1 H (3.5-5.0) g/dL
--- NOTE | 2024-05-07 13:23 | P.CNNES ---
History of Present Illness Consult date: 05/07/24 Requesting physician: Mohit Xie Reason for Consult: left arm numbness and tingling History of Present Illness: There is a 53-year-old gentleman who presented emergency department because of left upper extremity numbness tingling. Patient stated that he woke up at 7:30 AM yesterday and he noticed his entire left side was numb and tingling and felt he had some tightness over the lateral aspect of the left neck. He denies any radiation of neck pain. Denies any weakness. His last normal state was 11pm night the night prior or at midnight. Patient is months with dry yesterday. He denies any speech difficulty. Denies any visual disturbance. Denies any weakness. Denies any chest pain. Since symptoms is improving and he only has residual left hand numbness. Denies any history of stroke or TIA. He does have underlying history of hypertension hypercholesteremia. He stated that he was notified he is prediabetic and could not tolerate metformin so he is on diet control. He states he has numbness sensation of bilateral feet and hands that are intermittent and he was notified by the primary that this is possibly Raynaud's syndrome. He denies any discoloration of the the skin. He denies being on any antiplatelet. Denies any history of A-fib. He drinks about 3 times a week but when he drinks he drinks about 6 cans of beer in a day. Denies tobacco use denies any illicit drug use. Former tobacco user. Stopped smoking about 3 years ago. Some of the work-up during this hospital visit consisted of: CBC with differential is unremarkable Chemistry panel is is 119, sodium is 136 otherwise unremarkable. Hemoglobin A1c is 6.2 Troponin On 3 different occasions were unremarkable CT of the head is reported as age-related atrophy and chronic small vessel ischemic change without acute intracranial process seen at this time. Show reviewed the CT and I agree there is no acute or subacute process. Review of Systems The positive and negative as per HPI. Past Medical History Past Medical History: Hyperlipidemia, Hypertension History of Any Multi-Drug Resistant Organisms: None Reported Past Surgical History: Tonsillectomy Past Psychological History: No Psychological Hx Reported Smoking Status: Never smoker Past Alcohol Use History: Occasional Past Drug Use History: Marijuana Medications and Allergies Home Medications Medication Instructions Recorded Confirmed Type Atenolol/Chlorthalidone 1 tab PO DAILY 05/06/24 05/06/24 History [Atenolol/Chlorthalidone 50-25] Budesonide/Formoterol Fumarate 1 puff INHALATION RT-DAILY 05/06/24 05/06/24 History [Symbicort 160-4.5 Mcg Inhaler] Dicyclomine [Bentyl] 10 mg PO TID PRN 05/06/24 05/06/24 History Linagliptin [Tradjenta] 5 mg PO DAILY 05/06/24 05/06/24 History Omeprazole [PriLOSEC] 20 mg PO DAILY 05/06/24 05/06/24 History Rosuvastatin Calcium [Crestor] 40 mg PO HS 05/06/24 05/06/24 History lisinopriL [Zestril] 2.5 mg PO DAILY 05/06/24 05/06/24 History Allergies Allergy/AdvReac Type Severity Reaction Status Date / Time Penicillins AdvReac Unknown Verified 05/06/24 15:26 Childhood Physical Examination - Vital Signs Vital Signs: Vital Signs Temp Pulse Resp BP Pulse Ox 05/07/24 13:07 63 16 119/78 98 05/07/24 12:45 65 18 114/76 98 05/07/24 09:19 63 18 122/83 97 05/07/24 06:23 71 18 126/71 100 05/07/24 04:05 65 18 124/79 95 05/07/24 00:34 62 18 112/71 98 05/06/24 21:46 64 18 132/75 99 05/06/24 18:25 98.2 F 75 17 130/70 98 05/06/24 17:25 98.4 F 65 17 140/87 99 05/06/24 16:00 63 16 136/82 99 05/06/24 15:20 98.1 F 65 17 146/83 99 05/06/24 14:14 72 18 155/85 99 05/06/24 14:05 97.9 F 78 20 133/84 99 GENERAL: The patient is lying in bed and is not in acute distress. NEUROLOGICAL: Higher mental function: The patient is awake, alert, oriented to self, place and time. Patient is following commands. No aphasia and no neglect. Cranial nerves: The pupils are round, equal and reactive to light and accommodation. Visual molina are full to confrontation throughout. Extraocular movement is intact no nystagmus is noted. Facial sensation is normal to touch throughout. The facial strength is normal throughout. Hearing is normal bilaterally to hand rub. Tongue is midline and moved [id number] without any difficulty. No dysarthria is noted. Shoulder shrug is normal bilaterally. Motor: The strength is 5 over 5 throughout. Normal tone and bulk. Cerebellum: Normal finger to nose heel to ibarra bilaterally. Sensation: Sensation is normal to touch throughout. Reflexes (right/left): Biceps 2+/2+. Otherwise rest limited since resisting even after asking to relax. Plantars are downgoing bilaterally. Results - Laboratory Findings CBC and BMP: 05/07/24 09:10 05/07/24 09:10 Abnormal Lab Findings: Abnormal Labs 05/06/24 05/06/24 05/07/24 14:29 21:00 07:28 Sodium 136 L Carbon Dioxide Glucose 119 H POC Glucose (mg/dL) 123 H 132 H Hemoglobin A1c Albumin 5.1 H 05/07/24 05/07/24 05/07/24 09:10 09:10 12:03 Sodium 136 L Carbon Dioxide 32 H Glucose 126 H POC Glucose (mg/dL) 180 H Hemoglobin A1c 6.2 H Albumin Assessment and Plan Assessment: This is a 53-year-old gentleman who presents because of paresthesia of the left upper extremity upon waking up yesterday at 7:30 AM and he feels he is having ti ghtness over the left lateral aspect of the neck but denies any radiation of neck pain. He felt his mouth was dry yesterday as well. Denies any history of stroke or TIA. He is prediabetic, hypertension, hypercholesteremia and was told possibly has Raynaud's syndrome because of his cold sensation of hands and feet by his primary doctor the patient but he denies any discoloration of the skin. Paresthesia of the left upper extremity with neck tightness that is improving but not resolved. Rule out cervical radiculopathy vs stroke/TIA Diabetic Hypertension Hypercholesteremia Cold sensation of hands and feet and was notified possible Raynaud's syndrome by his PCP Former tobacco user Alcohol use (drinks 3 times a weeks but when he drinks he drink excessive about 6 cans of beer). Plan: I ordered MRI of the brain with and without. Unlikely this will be completed b ecause of the weekend. I will pursue with CT of the neck as well as carotid duplex Patient started on aspirin 81 mg daily by primary team and was given aspirin 324 mg once. He was not on any antiplatelets prior to this. He is on Lipitor 80 mg nightly. 2D echo and lipid panel were ordered Order TSH, vitamin B12, folate. Continue neurochecks Cardiac monitoring I counseled the patient on decrease consumption of alcohol use. I started the patient on thiamine 100 mg daily. Cardiology is consulted Will defer the rest of the medical management to primary and other specialists For DVT prophylaxis: On subq heparin. The plan is discussed with patient and Primary team N.P. Thank you for the consultation Time with Patient: Greater than 30
[2024-05-07] MEDS: THIAMINE 100 MG TAB PO SCH (13:43)
--- NOTE | 2024-05-07 14:08 | CT ---
EXAMINATION TYPE: CT cervical spine wo con DATE OF EXAM: 05/07/2024 COMPARISON: 05/27/2023 HISTORY: left upper extremity paresthesia with neck pain CT DLP: 473.8 mGycm CONTRAST: None CT of the cervical spine is performed in the axial plane at 2 mm thick sections. Reconstructed image s in the coronal, and sagittal plane are reviewed on the computer. No acute fractures are evident. Vertebral body alignment is normal. Disc heights are preserved. Vertebral body heights are preserved. No spinal canal stenosis is evident No neural foraminal stenosis is evident. IMPRESSION: 1. No acute abnormality cervical spine
--- NOTE | 2024-05-07 14:27 | US ---
EXAMINATION TYPE: US carotid duplex BILAT DATE OF EXAM: 05/07/2024 COMPARISON: NONE CLINICAL INDICATION: Male, 53 years old with history of stroke; left arm numbness and tingling TECHNIQUE: Carotid duplex ultrasound examination. Indirect Doppler criteria was utilized. FINDINGS: EXAM MEASUREMENTS: RIGHT: Peak Systolic Velocity (PSV) cm/sec ----- Right CCA: 77.5 ----- Right ICA: 89.5 ----- Right ECA: 97.6 ICA/CCA ratio: 1.15 RIGHT: End Diastole cm/sec ----- Right CCA: 22.4 ----- Right ICA: 30.4 ----- Right ECA: 21.8 LEFT: Peak Systolic Velocity (PSV) cm/sec ----- Left CCA: 105 ----- Left ICA: 125 ----- Left ECA: 188 ICA/CCA ratio: 1.19 LEFT: End Diastole cm/sec ----- Left CCA: 35.7 ----- Left ICA: 39.6 ----- Left ECA: 29.4 VERTEBRALS (direction of flow): Right Vertebral: Antegrade Left Vertebral: Antegrade Rhythm: Normal OCCUPATIONAL HYGIENIST NOTES: Mild plaque bilateral bifurcations. Increased velocities left ECA IMPRESSION: No hemodynamically significant stenosis Criteria for Assigning % of Stenosis / Diameter reduction (Estimation based on the indirect measurements of the internal carotid artery velocities (ICA PSV). 1. Normal (no stenosis)=ICA PSV < 125 cm/s: ratio < 2.0: ICA EDV<40 cm/s. 2. Less than 50% stenosis=ICA PSV < 125 cm/s: ratio < 2.0: ICA EDV<40 cm/s. 3. 50 to 69% stenosis=ICA PSV of 125 to 230 cm/s: ration 2.0 ? 4.0: ICA EDV 40-100 cm/s. 4. Greater than 70% stenosis to near occlusion= ICA PSV > 230 cm/s: ratio > 4.0: ICA EDV > 100 cm/s. 5. Near occlusion= ICA PSV velocities may be low or undetectable: variable ratio and ICA EDV. 6. Total occlusion=unable to detect flow.
[2024-05-07 17:19] LABS: Glucose,Whole Blood 141 mg/dL (70-110)
[2024-05-07 20:36] LABS: Glucose,Whole Blood 137 mg/dL (70-110)
[2024-05-08 06:12] LABS: Glucose,Whole Blood 125 mg/dL (70-110)
[2024-05-08 10:34] LABS: Chol/HDL Ratio 3.77 Ratio
[2024-05-08 12:03] LABS: Glucose,Whole Blood 135 mg/dL (70-110)
--- NOTE | 2024-05-08 12:03 | P.PN ---
Subjective Progress Note Date: 05/08/24 PROGRESS NOTE The patient is a 53-year-old male with known history of hyperlipidemia and hypertension who presented with numbness, predominantly in both hands. He continues to have some numbness in the hands but no chest discomfort. He has been ambulating without difficulty. His breathing is stable. He continues to be in sinus mechanism. He has a history of diabetes. Medications: Aspirin, atenolol 50 mg daily, Lipitor 40 mg daily, insulin, lisinopril 2.5 mg daily, Protonix PHYSICAL EXAMINATION: Blood pressure 116/70 heart rate 60 LUNGS: Clear to auscultation HEART: Regular rate and rhythm, S1, S2. No S3. No systolic murmur ABDOMEN: Soft, nontender, no organomegaly EXTREMETIES: No edema LAB: Cholesterol 226, LDL 126. Troponin less than 0.012 IMPRESSION: 1. Hand numbness, noncardiac could be related to neuropathy 2. Hypertension 3. Hyperlipidemia 4. Diabetes mellitus PLAN: 1. Add ezetimibe to optimize lipid control 2. Obtain an echocardiogram with Doppler 3. Increase physical activity 4. If no evidence of segmental wall motion abnormalities no further cardiac workup will be needed as an inpatient, follow-up as an outpatient. Objective - Vital Signs Vital signs: Vital Signs Temp 97.8 F 05/08/24 07:00 Pulse 59 L 05/08/24 07:00 Resp 17 05/08/24 07:00 BP 116/72 05/08/24 07:00 Pulse Ox 97 05/08/24 07:00 FiO2 Intake & Output 05/07/24 05/08/24 05/08/24 18:59 06:59 18:59 Intake Total 236 Balance 236 Weight 112.037 kg Intake: Oral 236 Other: Voiding Method Toilet Toilet # Voids 2 - Labs CBC & Chem 7: 05/07/24 09:10 05/07/24 09:10 Labs: Abnormal Lab Results - Last 24 Hours (Table) 05/07/24 05/07/24 05/07/24 Range/Units 09:10 09:10 12:03 POC Glucose (mg/dL) 180 H (70-110) mg/dL Hemoglobin A1c 6.2 H (<=6.0) % Triglycerides 200.00 H (0.00-149.00) mg/dL Cholesterol 226.00 H (0.00-200.00) mg/dL 05/07/24 05/07/24 05/08/24 Range/Units 17:18 20:35 06:10 POC Glucose (mg/dL) 141 H 137 H 125 H (70-110) mg/dL Hemoglobin A1c (<=6.0) % Triglycerides (0.00-149.00) mg/dL Cholesterol (0.00-200.00) mg/dL
[2024-05-08] MEDS: EZETIMIBE 10 MG TAB PO SCH (13:08)
--- NOTE | 2024-05-08 13:32 | P.PN ---
Subjective Progress Note Date: 05/08/24 Hospital Course: Patient is a 53-year-old male with a past medical history of hypertension, hyperlipidemia, GERD, and type II [id number] diabetes mellitus. He presented to the hospital via EMS as a transfer from urgent care where patient presented with left arm paresthesia/numbness accompanied by pain/tightness to left lateral neck and left anterior chest. Patient reports he began experiencing sudden onset left arm numbness/tingling extending throughout his entire arm patient reports this was persistent and did not resolve so he went to the urgent care for evaluation and was transferred to our facility for further recommendation via EMS. He states he also believes he may have had some tightness in his left neck/shoulder region radiating down into the left side of his chest but reports this was mild. He denied experiencing any weakness in his left arm but reports complete numbness with tingling sensation throughout. He denies any injuries or cervical pain/discomfort, headache, lightheadedness, dizziness, changes in vision or hearing, difficulties with or changes in speech, dysphagia, palpitations, shortness of breath, cough or congestion, back pain, nausea, vomiting, or experiencing any swelling or weakness in his extremities. U ritchie arrival to our facility, patient underwent evaluation in the emergency department. Vital signs upon arrival show blood pressure 133/84, heart rate 78, respiratory rate 20, temp 97.9 F, and SpO2 of 99% on room air. EKG was completed showing normal sinus rhythm at 71 bpm with an incomplete right bundle branch block with QRS duration of 100 ms and no noted T wave or ST abnormalities showing no signs of acute ischemia upon personal review and interpretation. Chest x-ray completed negative for acute cardiopulmonary process. CT brain completed negative for acute intracranial process revealing age-related atrophic and chronic small vessel ischemic changes. Labs completed and reviewed. CBC unremarkable. Coagulation profile normal findings. D-dimer negative at 0.23. BMP unremarkable. Blood glucose 119. Magnesium slightly low at 1.7. Liver profile unremarkable. And troponin was negative at less than 0.012. Patient was admitted under our services with consultation to cardiology and neurology. Physical exam: Patient seen and fully evaluated at the bedside this morning. He continues to deny any further episodes of chest or neck tightness reports continues to have a "funny feeling" in his left hand and fingers, but today reports feeling a little tingling in both hands. Continues to deny weakness or any other complaints at this time. Vital signs reviewed and stable. General: Nontoxic, no distress and appears stated age. Derm: Skin warm and dry, normal coloration for ethnicity. Head: Atraumatic, normocephalic and symmetric. Eyes: EOMs intact, no lid lag, and anicteric sclera Mouth: no lip lesions, mucus membranes moist Cardiovascular: regular rate and rhythm with normal S1S2, no murmur, positive posterior tibial pulses bilaterally, and cap refill < 2 seconds. Lungs: Respirations even, regular, and unlabored on room air. Lungs CTA bilaterally, no rhonchi, no rales, no wheezing, and no accessory muscle usage. Abdominal: soft, nontender to palpation, no guarding, no appreciable organomegaly Ext: ROM intact. No gross muscle atrophy, no edema, no contractures Neuro: Speech clear, face symmetrical and CN II-XII grossly intact with no noted focal neuro deficits Psych: Alert and oriented to person, place, time, and situation. Appropriate and pleasant affect. Assessment and Plan of Care: Left arm numbness and paresthesias Chest and neck tightness, acute coronary event ruled out Hypertension Hyperlipidemia -Cardiology consulted, reviewed documentation in chart. Cardiology adding on ezetimibe to optimize lipid control and in agreement with completion of echocardiogram. -Neurology consulted, discussed plan of care with neurologist recommending patient undergo MRI brain and cervical spine. -Telemetry monitoring -Troponins were negative at less than 0.012 x 3 draws. Lipid profile showing triglycerides of 200.00 and total cholesterol of 226.00. Hemoglobin A1c elevated at 6.2%. -Continue aspirin 81 mg daily, atenolol 50 mg daily, atorvastatin 80 mg nightly, Zetia 10 mg daily, lisinopril 2.5 mg daily, and sublingual nitro 0.4 mg tablets every 5 minutes as needed for chest pain. -Echocardiogram Type 2 diabetes mellitus -Resume Tradjenta 5 mg daily and continue glycemic protocol with NovoLog sliding scale. GERD -Continue GI prophylaxis with Protonix 40 mg daily. Data and imaging reviewed: -Vital signs reviewed and stable. Blood pressure over 72, heart rate 59, respiratory rate 17, temp 97.8 F, and SpO2 of 97% on room air. -Labs reviewed. Lipid profile showing triglycerides of 200.00 and total cholesterol of 226.00. Hemoglobin A1c elevated at 6.2%.. CODE STATUS: Full code DVT prophylaxis: Heparin Anticipated discharge date: Likely tomorrow, awaiting MRI and echocardiogram to get completed. Anticipated discharge place: Home Patient was seen independently by Nurse Practitioner. This document was prepared using [employer] dictation software. Please allow for errors in biology lecturer while rare they do occur. Mohit Xie [employer] MACHINE [employer] rendered care for this patient independently, reviewed the findings and plan as documented in the note above. I did not physically speak with or examine the patient on this date. Objective - Vital Signs Vital signs: Vital Signs Temp 97.8 F 05/08/24 07:00 Pulse 59 L 05/08/24 07:00 Resp 17 05/08/24 07:00 BP 116/72 05/08/24 07:00 Pulse Ox 97 05/08/24 07:00 FiO2 Intake & Output 05/07/24 05/08/24 05/08/24 18:59 06:59 18:59 Weight 112.037 kg Other: Voiding Method Toilet # Voids 2 - Labs CBC & Chem 7: 05/09/24 07:01 05/09/24 07:01 Labs: Abnormal Lab Results - Last 24 Hours (Table) 05/07/24 05/07/24 05/07/24 Range/Units 09:10 09:10 12:03 Sodium 136 L (137-145) mmol/L Carbon Dioxide 32 H (22-30) mmol/L Glucose 126 H (74-99) mg/dL POC Glucose (mg/dL) 180 H (70-110) mg/dL Hemoglobin A1c 6.2 H (<=6.0) % 05/07/24 05/07/24 05/08/24 Range/Units 17:18 20:35 06:10 Sodium (137-145) mmol/L Carbon Dioxide (22-30) mmol/L Glucose (74-99) mg/dL POC Glucose (mg/dL) 141 H 137 H 125 H (70-110) mg/dL Hemoglobin A1c (<=6.0) %
--- NOTE | 2024-05-08 15:04 | P.PN ---
Subjective Progress Note Date: 05/08/24 I am following-up with patient and he states he is having tingling over bilateral hand finger tips. Denies of any weakness, neck pain or stiffness. Denies of any new neurological issues. Objective - Vital Signs Vital signs: Vital Signs Temp 98.8 F 05/08/24 14:28 Pulse 67 05/08/24 14:28 Resp 17 05/08/24 14:28 BP 111/73 05/08/24 14:28 Pulse Ox 97 05/08/24 14:28 FiO2 Intake & Output 05/07/24 05/08/24 05/08/24 18:59 06:59 18:59 Intake Total 236 Balance 236 Weight 112.037 kg Intake: Oral 236 Other: Voiding Method Toilet Toilet # Voids 2 2 - Exam GENERAL: The patient is lying in bed and is not in acute distress. NEUROLOGICAL: Higher mental function: The patient is awake, alert, oriented to self, place and time. Patient is following commands. No aphasia and no neglect. Cranial nerves: The pupils are round, equal and reactive to light and accommodation. Visual molina are full to confrontation throughout. Extraocular movement is intact no nystagmus is noted. Facial sensation is normal to touch throughout. The facial strength is normal throughout. Hearing is normal bilaterally to hand rub. Tongue is midline and moved [id number] without any difficulty. No dysarthria is noted. Shoulder shrug is normal bilaterally. Motor: The strength is 5 over 5 throughout. Normal tone and bulk. Cerebellum: Normal finger to nose heel to ibarra bilaterally. Sensation: Sensation is normal to touch throughout. Reflexes (right/left): Biceps 2+/2+. Otherwise rest limited since resisting even after asking to relax. Plantars are downgoing bilaterally. Some of the work-up during this hospital visit consisted of: CBC with differential is unremarkable Lipid panel: TG 200, Cholestrol 226, LDL 126 and HDL 60 Hemoglobin A1c is 6.2 foalte: 15.20 Troponin On 3 different occasions were unremarkable CT of the head is reported as age-related atrophy and chronic small vessel ischemic change without acute intracranial process seen at this time.I reviewed the CT and I agree there is no acute or subacute process. Carotid duplex: No hemodynamically significant stenosis. CT cervical spine: No acute abnormality. - Labs CBC & Chem 7: 05/07/24 09:10 05/07/24 09:10 Labs: Abnormal Lab Results - Last 24 Hours (Table) 05/07/24 05/07/24 05/07/24 Range/Units 09:10 17:18 20:35 POC Glucose (mg/dL) 141 H 137 H (70-110) mg/dL Triglycerides 200.00 H (0.00-149.00) mg/dL Cholesterol 226.00 H (0.00-200.00) mg/dL 05/08/24 05/08/24 Range/Units 06:10 12:01 POC Glucose (mg/dL) 125 H 135 H (70-110) mg/dL Triglycerides (0.00-149.00) mg/dL Cholesterol (0.00-200.00) mg/dL Assessment and Plan Assessment: This is a 53-year-old gentleman who presents because of paresthesia of the left upper extremity upon waking up yesterday at 7:30 AM and he feels he is having tightness over the left lateral aspect of the neck but denies any radiation of neck pain. He felt his mouth was dry yesterday as well. Denies any history of stroke or TIA. He is prediabetic, hypertension, hypercholesteremia and was told possibly has Raynaud's syndrome because of his cold sensation of hands and feet by his primary doctor the patient but he denies any discoloration of the skin. Paresthesia of the left upper extremity with neck tightness that is improving but not resolved. But today he complaining of tingling of bilateral finger tips of both hands. Rule out stroke/TIA vs ?cervical radiculopathy vs neuropathy. CT head/C-spine and carotid duplex are unremarkable. Diabetic Hypertension Hypercholesteremia Cold sensation of hands and feet and was notified possible Raynaud's syndrome by his PCP Former tobacco user Alcohol use (drinks 3 times a weeks but when he drinks he drink excessive about 6 cans of beer). Plan: Pending MRI of the brain/C spine with and without. Patient started on aspirin 81 mg daily by primary team and was given aspirin 324 mg once. He was not on any antiplatelets prior to this. He is on Lipitor 80 mg nightly. 2D echo is pending TSH, vitamin B12 are pending Continue neurochecks Cardiac monitoring I counseled the patient on decrease consumption of alcohol use. I started the patient on thiamine 100 mg daily. Cardiology is consulted Will defer the rest of the medical management to primary and other specialists For DVT prophylaxis: On subq heparin. The plan is discussed with patient and Primary team NNick. Dr. Marcus will resume neurology service tomorrow A.M. Time with Patient: Less than 30
[2024-05-08 17:33] LABS: Glucose,Whole Blood 129 mg/dL (70-110)
[2024-05-08 20:08] LABS: Glucose,Whole Blood 130 mg/dL (70-110)
[2024-05-09 05:15] LABS: Glucose,Whole Blood 120 mg/dL (70-110)
[2024-05-09 08:38] VITALS: BP 125/79; PULSE 53; TEMP 97.8
[2024-05-09 08:41] VITALS: RESP 14
[2024-05-09] MEDS: LINAGLIPTIN 5 MG TABLET PO SCH (10:11)
[2024-05-09 10:49] LABS: HCT 47.1 % (39.6-50.0); HGB 15.5 g/dL (13.0-17.0); MCH 30.3 pg (27.0-32.0); MCHC 32.9 g/dL (32.0-37.0); Mean Platelet Volume 11.2 FL (9.5-12.2); NRBC Per 100 WBC 0 X 10*3/uL (0.00-0.01); Platelet Count 287 X 10*3/uL (140-440); RBC 5.12 X 10*6/uL (4.40-5.60); RDW 11.9 % (11.5-14.5); WBC 9.01 X 10*3/uL (4.50-10.00)
[2024-05-09 11:02] LABS: ALT 25 U/L (10-49); AST 22 U/L (14-35); Albumin 4.7 g/dL (3.8-4.9); Albumin/Globulin Ratio 2.24 Ratio (1.60-3.17); Alkaline Phosphatase 58 U/L (41-126); Calcium 9.8 mg/dL (8.7-10.3); Carbon Dioxide 27.1 mmol/L (21.6-31.8); Chloride 99 mmol/L (96-109); Globulin 2.1 g/dL (1.6-3.3); Glucose 124 mg/dL (70-110); Magnesium 2.1 mg/dL (1.5-2.4); Potassium 4.4 mmol/L (3.5-5.5); Sodium 138 mmol/L (135-145); Total Bilirubin 0.9 mg/dL (0.3-1.2); Total Protein 6.8 g/dL (6.2-8.2)
--- NOTE | 2024-05-09 12:06 | CA ---
Transthoracic Echo Report Name: Jethro Luna Age: 53 Gender: M : 1970 Exam Date: 05/09/2024 09:20 Exam Location: [facility] Ht (in): 72 Wt (lb): 247 Ordering Physician: Pito Glasgow DO Attending/Referring Phys: Lurer Maria Fernanda Ramsey RDCS Procedure CPT: Indications: CP Cardiac Hx: Technical Quality: Fair Contrast 1: Total Dose (mL): Contrast 2: Total Dose (mL): MEASUREMENTS (Male / Female) Normal Values 2D ECHO LV Diastolic Diameter PLAX 3.8 cm 4.2 - 5.9 / 3.9 - 5.3 cm LV Systolic Diameter PLAX 2.6 cm IVS Diastolic Thickness 1.3 cm 0.6 - 1.0 / 0.6 - 0.9 cm LVPW Diastolic Thickness 1.0 cm 0.6 - 1.0 / 0.6 - 0.9 cm LV Relative Wall Thickness 0.6 RV Internal Dim ED PLAX 4.0 cm LA Volume 54.2 cm??? 18 - 58 / 22 - 52 cm??? LA Volume Index 22.4 cm???/m??? 16 - 28 cm???/m??? M-MODE Aortic Root Diameter MM 3.5 cm LA Systolic Diameter MM 3.2 cm LA Ao Ratio MM 0.9 AV Cusp Separation MM 2.0 cm DOPPLER AV Peak Velocity 131.8 cm/s AV Peak Gradient 7.0 mmHg AV Mean Velocity 101.3 cm/s AV Mean Gradient 4.4 mmHg AV Velocity Time Integral 28.1 cm LVOT Peak Velocity 121.5 cm/s LVOT Peak Gradient 5.9 mmHg LVOT Velocity Time Integral 24.3 cm MV Area PHT 3.2 cm??? Mitral E Point Velocity 79.5 cm/s Mitral A Point Velocity 83.9 cm/s Mitral E to A Ratio 0.9 MV Deceleration Time 240.5 ms MV E' Velocity 8.8 cm/s Mitral E to MV E' Ratio 9.1 FINDINGS Left Ventricle Left ventricular cavity size normal. Mildly increased left ventricular wall thickness. Normal left ventricular systolic function with no obvious regional wall motion abnormalities. Normal left ventricular diastolic filling pattern. Left ventricular ejection fraction is estimated at 55-60 %. Right Ventricle Right ventricular dilatation. Right ventricular systolic pressure within normal limits. Right Atrium Normal right atrial size. Left Atrium Normal left atrial size. Mitral Valve Structurally normal mitral valve. No mitral stenosis. Mild mitral regurgitation. Aortic Valve Trileaflet aortic valve. No aortic valve stenosis or regurgitation. Tricuspid Valve Structurally normal tricuspid valve. Mild tricuspid regurgitation. Pulmonic Valve Structurally normal pulmonic valve. Pericardium No pericardial effusion. Aorta Normal size aortic root and proximal ascending aorta. CONCLUSIONS Left ventricular ejection fraction is estimated at 55-60 %. Normal LV cavity size. Mild LVH No obvious regional wall motion abnormality RV appears mildly dilated with normal systolic function. RVSP within normal limits No significant valve dysfunction Previewed by: Dr Tashi De La Garza (Electronically Signed) Final Date: 09 May 2024 12:05
--- NOTE | 2024-05-09 13:31 | P.PN ---
Subjective Progress Note Date: 05/09/24 Patient was initially seen by Dr. Miguel Barrios. Please refer to his note for details. Patient is a 53-year-old male with left upper extremity paresthesias then developed bilateral hand tingling. CT head/CT cervical spine was negative. Patient states that he is developed numbness of both hands involving the fingers up to the MCP joints bilaterally, but does not involve the thumb. Patient does notice some coldness in the feet. Patient has history of pre-diabetes for which he was on metformin but he stopped taking it for almost a year. Patient has stopped smoking about 3 years ago. He does have hypertension. Some of the work-up during this hospital visit consisted of: CBC with differential is unremarkable Lipid panel: TG 200, Cholestrol 226, LDL 126 and HDL 60 Hemoglobin A1c is 6.2 foalte: 15.20 Troponin On 3 different occasions were unremarkable CT of the head is reported as age-related atrophy and chronic small vessel ischemic change without acute intracranial process seen at this time.I reviewed the CT and I agree there is no acute or subacute process. Carotid duplex: No hemodynamically significant stenosis. Antegrade flow in both vertebral arteries. CT cervical spine: No acute abnormality. Objective - Vital Signs Vital signs: Vital Signs Temp 97.8 F 05/09/24 08:36 Pulse 53 L 05/09/24 08:36 Resp 14 05/09/24 08:36 BP 125/79 05/09/24 08:36 Pulse Ox 100 05/09/24 08:36 FiO2 Intake & Output 05/08/24 05/09/24 05/09/24 18:59 06:59 18:59 Intake Total 796 420 Balance 796 420 Intake: Oral 796 420 Other: Voiding Method Toilet Toilet Toilet # Voids 2 1 - Exam Mental status, speech and language functions are normal, cranial nerves are normal. Muscle strength is completely normal in the arms and legs. Sensory to touch is equal. No ataxia in the upper or lower limbs. Gait is normal. Reflexes are somewhat hypoactive in the arms and legs. - Labs CBC & Chem 7: 05/09/24 07:01 05/09/24 07:01 Labs: Abnormal Lab Results - Last 24 Hours (Table) 05/08/24 05/08/24 05/09/24 Range/Units 17:31 20:06 05:11 Glucose (70-110) mg/dL POC Glucose (mg/dL) 129 H 130 H 120 H (70-110) mg/dL 05/09/24 Range/Units 07:01 Glucose 124 H (70-110) mg/dL POC Glucose (mg/dL) (70-110) mg/dL Assessment and Plan Assessment: This is a 53-year-old gentleman who presents because of paresthesia of the left upper extremity upon waking up yesterday at 7:30 AM and he feels he is having tightness over the left lateral aspect of the neck but denies any radiation of neck pain. He felt his mouth was dry yesterday as well. Denies any history of stroke or TIA. He is prediabetic, hypertension, hypercholesteremia and was told possibly has Raynaud's syndrome because of his cold sensation of hands and feet by his primary doctor the patient but he denies any discoloration of the skin. Paresthesia of the left upper extremity with neck tightness that is improving but not resolved. But today he complaining of tingling of bilateral finger tips of both hands. Acute stroke ruled out. MRI of the cervical spine revealed central bulging disc at C6-7, which is putting an impression on the ventral aspect of spinal cord without any compression. PreDiabetic Hypertension Hypercholesteremia Cold sensation of hands and feet and was notified possible Raynaud's syndrome by his PCP Former tobacco user Alcohol use (drinks 3 times a weeks but when he drinks he drink excessive about 6 cans of beer). Plan: MRI of the brain revealed no acute process. Some scattered white matter lesions were seen, suggestive of small vessel disease, does not appear like demyelinating process. MRI C spine with and without shows central disc bulge at C5-6, abutting the ventral aspect of the spinal cord, without spinal cord compression. Otherwise no abnormal signal in the spinal cord. Official radiology report of MRI still pending. Patient started on aspirin 81 mg daily by primary team and was given aspirin 324 mg once. He was not on any antiplatelets prior to this. He is on Lipitor 80 mg nightly. 2D echo revealed normal left ventricular size with EF 55 to 60%. Mild LVH. No obvious regional wall motion abnormality. Right ventricle appears mildly dilated with normal systolic function. No significant valvular dysfunction. Normal left atrial size. TSH 1.01, vitamin B12 576, folate 15.2, all normal. Cardiac monitoring Dr. Barrios has counseled the patient on decrease consumption of alcohol use. He also started patient on thiamine 100 mg daily. Cardiology on board. Will defer the rest of the medical management to primary and other specialists For DVT prophylaxis: On subq heparin. Neurologically clear for discharge. Recommend patient follow-up with neurologist. May recommend EMG nerve conduction of upper extremities as outpatient. Regarding cervical disc, avoid any neck injuries. Addendum: Official MRI brain report revealed unremarkable pre and postcontrast enhanced MRI of the brain. MRI of the cervical spine revealed multilevel mild degenerative disc disease. Posterior central disc protrusion at C5-6. Small disc bulge at C6-7 situated stretches equally at the opening of the left neural foramen. Left foraminal encroachment.
--- NOTE | 2024-05-09 14:28 | P.PN ---
Subjective Progress Note Date: 05/09/24 PROGRESS NOTE The patient is a 53-year-old male with known history of hyperlipidemia and hypertension who presented with numbness, predominantly in both hands. He continues to have some numbness in the hands but no chest discomfort. He has been ambulating without difficulty. His breathing is stable. He continues to be in sinus mechanism. He has a history of diabetes. LAB: Cholesterol 226, LDL 126. Troponin less than 0.012 Medications: Aspirin, atenolol 50 mg daily, Lipitor 40 mg daily, insulin, lisinopril 2.5 mg daily, Protonix 05/09 Patient is seen today in follow-up. Echocardiogram reveals EF of 55 to 60%. Mild LVH. Results reviewed with the patient. Blood pressure has been stable. Blood pressure 125/79, heart rate 53, pulse ox 100% on room air. Repeat blood work reveals hemoglobin 15.5. Creatinine 1. Patient is undergoing neurological workup and MRI of the brain was just completed. Yesterday, Zetia was added to his medication regime. PHYSICAL EXAMINATION: Blood pressure 116/70 heart rate 60 LUNGS: Clear to auscultation HEART: Regular rate and rhythm, S1, S2. No S3. No systolic murmur ABDOMEN: Soft, nontender, no organomegaly EXTREMETIES: No edema IMPRESSION: 1. Hand numbness, noncardiac could be related to neuropathy 2. Hypertension 3. Hyperlipidemia 4. Diabetes mellitus PLAN: Continue current cardiac medications Patient is cleared for discharge from cardiology and may follow-up in the office in 1 to 2 weeks. Nurse practitioner note has been reviewed, I agree with documented findings and plan of care. Patient was seen and examined. Objective - Vital Signs Vital signs: Vital Signs Temp 97.8 F 05/09/24 08:36 Pulse 53 L 05/09/24 08:36 Resp 14 05/09/24 08:36 BP 125/79 05/09/24 08:36 Pulse Ox 100 05/09/24 08:36 FiO2 Intake & Output 05/08/24 05/09/24 05/09/24 18:59 06:59 18:59 Intake Total 796 420 Balance 796 420 Intake: Oral 796 420 Other: Voiding Method Toilet Toilet Toilet # Voids 2 1 - Labs CBC & Chem 7: 05/09/24 07:01 05/09/24 07:01 Labs: Abnormal Lab Results - Last 24 Hours (Table) 05/08/24 05/08/24 05/09/24 Range/Units 17:31 20:06 05:11 Glucose (70-110) mg/dL POC Glucose (mg/dL) 129 H 130 H 120 H (70-110) mg/dL 05/09/24 Range/Units 07:01 Glucose 124 H (70-110) mg/dL POC Glucose (mg/dL) (70-110) mg/dL
--- NOTE | 2024-05-09 15:23 | P.DS ---
Providers Date of admission: 05/06/24 16:19 Expected date of discharge: 05/09/24 Attending physician: Tulio Gastelum MD Consults: 05/06/24 16:19 Consult Physician Urgent Consulting Provider: El Wiggins Consult Reason/Comments: cp Do you want consulting provider notified?: Yes 05/06/24 18:03 Consult Physician Routine Consulting Provider: Mgiuel Barrios Consult Reason/Comments: left arm numbness/tingling Do you want consulting provider notified?: Yes Primary care physician: Brandan Brand Hospital Course: Discharge Diagnosis: Left arm numbness and paresthesias Chest and neck tightness, acute coronary event ruled out Hypertension Hyperlipidemia Type 2 diabetes mellitus. Resume Tradjenta 5 mg daily. Hemoglobin A1c 6.2%. GERD. Continue GI prophylaxis with Protonix 40 mg daily. Hospital Course: Patient is a 53-year-old male with a past medical history of hypertension, hyperlipidemia, GERD, and type II psa-byqvmbz-tahdmhpfv diabetes mellitus. He presented to the hospital via EMS as a transfer from urgent care where patient presented with left arm paresthesia/numbness accompanied by pain/tightness to left lateral neck and left anterior chest. Patient reports he began e xperiencing sudden onset left arm numbness/tingling extending throughout his entire arm patient reports this was persistent and did not resolve so he went to the urgent care for evaluation and was transferred to our facility for further recommendation via EMS. He states he also believes he may have had some tightness in his left neck/shoulder region radiating down into the left side of his chest but reports this was mild. He denied experiencing any weakness in his left arm but reports complete numbness with tingling sensation throughout. He denies any injuries or cervical pain/discomfort, headache, lightheadedness, dizziness, changes in vision or hearing, difficulties with or changes in speech, dysphagia, palpitations, shortness of breath, cough or congestion, back pain, nausea, vomiting, or experiencing any swelling or weakness in his extremities. Upon arrival to our facility, patient underwent evaluation in the emergency department. Vital signs upon arrival show blood pressure 133/84, heart rate 78, respiratory rate 20, temp 97.9 F, and SpO2 of 99% on room air. EKG was completed showing normal sinus rhythm at 71 bpm with an incomplete right bundle branch block with QRS duration of 100 ms and no noted T wave or ST abnormalities showing no signs of acute ischemia upon personal review and interpretation. Chest x-ray completed negative for acute cardiopulmonary process. CT brain completed negative for acute intracranial process revealing age-related atrophic and chronic small vessel ischemic changes. Labs completed and reviewed. CBC unremarkable. Coagulation profile normal findings. D-dimer negative at 0.23. BMP unremarkable. Blood glucose 119. Magnesium slightly low at 1.7. Liver profile unremarkable. And troponin was negative at less than 0.012. Patient was admitted under our services with consultation to cardiology and neurology. Troponins were trended and all negative resulting at 0.012 x 3 draws. Lipid profile showing elevated triglycerides of 200.00 and elevated total cholesterol of 226.00. Hemoglobin A1c slightly elevated at 6.2%. Patient was evaluated by cardiology and an echocardiogram was completed. Echocardiogram revealing preserved EF of 55 to 60% with no significant valvular or structural abnormalities reported. Buffet Server starting patient on Zetia to optimize lipid control. Cardiology clearing patient from cardiac perspective for discharge. MRI brain and cervical spine was then completed and reviewed by neurologist reporting MRI brain was negative for acute process showing some scattered white matter lesions suggestive of small vessel ischemic disease but does not appear to be demyelinating process and MRI cervical spine showing a central disc bulge at C5-C6 abutting the ventral aspect of the spinal cord without spinal cord compression. Official radiology read is pending however patient cleared from neurology perspective for discharge, . Patient's symptoms significantly improved and patient medically stable at this time. Patient to follow-up outpatient with PCP in 1 to 2 days, review analyst in 1 to 2 weeks, orthospine surgeon in 1 to 2 weeks, and neurologist in 2 to 3 weeks. Physical exam: Vital signs reviewed and stable. General: Nontoxic, no distress and appears stated age. Derm: Skin warm and dry, normal coloration for ethnicity. Head: Atraumatic, normocephalic and symmetric. Eyes: EOMs intact, no lid lag, and anicteric sclera Mouth: no lip lesions, mucus membranes moist Cardiovascular: regular rate and rhythm with normal S1S2, no murmur, positive posterior tibial pulses bilaterally, and cap refill < 2 seconds. Lungs: Respirations even, regular, and unlabored on room air. Lungs CTA bilaterally, no rhonchi, no rales, no wheezing, and no accessory muscle usage. Abdominal: soft, nontender to palpation, no guarding, no appreciable organomegaly Ext: ROM intact. No gross muscle atrophy, no edema, no contractures Neuro: Speech clear, face symmetrical and CN II-XII grossly intact with no noted focal neuro deficits Psych: Alert and oriented to person, place, time, and situation. Appropriate and pleasant affect. A total of 34 minutes of time were spent Echocardiogram was completed preparing this complex discharge summary. Pt was discharged on 05/09/2024 at 3:14 PM. Patient was seen independently by Nurse Practitioner. This document was prepared using [employer] dictation software. Please allow for errors in quality assurance representative while rare they do occur. Mohit Xie NP rendered care for this patient independently, reviewed the findings and plan as documented in the note above. I did not physically speak with or examine the patient on this date. Patient Condition at Discharge: Stable Plan - Discharge Summary New Discharge Prescriptions: New Thiamine [Vitamin B-1] 100 mg PO DAILY 30 Days #30 tab Ezetimibe [Zetia] 10 mg PO DAILY 30 Days #30 tab Continue Rosuvastatin Calcium [Crestor] 40 mg PO HS Linagliptin [Tradjenta] 5 mg PO DAILY Dicyclomine [Bentyl] 10 mg PO TID PRN PRN Reason: Gi Upset Budesonide/Formoterol Fumarate [Symbicort 160-4.5 Mcg Inhaler] 1 puff INHALATION RT-DAILY lisinopriL [Zestril] 2.5 mg PO DAILY Omeprazole [PriLOSEC] 20 mg PO DAILY Atenolol/Chlorthalidone [Atenolol/Chlorthalidone 50-25] 1 tab PO DAILY Discharge Medication List Atenolol/Chlorthalidone [Atenolol/Chlorthalidone 50-25] 1 tab PO DAILY 05/06/24 [History] Budesonide/Formoterol Fumarate [Symbicort 160-4.5 Mcg Inhaler] 1 puff INHALATION RT-DAILY 05/06/24 [History] Dicyclomine [Bentyl] 10 mg PO TID PRN 05/06/24 [History] Linagliptin [Tradjenta] 5 mg PO DAILY 05/06/24 [History] Omeprazole [PriLOSEC] 20 mg PO DAILY 05/06/24 [History] Rosuvastatin Calcium [Crestor] 40 mg PO HS 05/06/24 [History] lisinopriL [Zestril] 2.5 mg PO DAILY 05/06/24 [History] Ezetimibe [Zetia] 10 mg PO DAILY 30 Days #30 tab 05/09/24 [Rx] Thiamine [Vitamin B-1] 100 mg PO DAILY 30 Days #30 tab 05/09/24 [Rx] Follow up Appointment(s)/Referral(s): Tashi De La Garza MD [Medical Doctor] - 1 Week Brandan Brand DO [Primary Care Provider] - 1-2 days Tiera Blakely MD [REFERRING] - 2 Weeks (recommend EMG nerve conduction of upper extremities as outpatient. Office will call patient with date and time of appointment) Jeffrey Stringer DO [Doctor of Osteopathic Medicine] - 05/27/24 9:45 am (Please verify appointment with Orthopedics. Schedule outpatient follow up for cervical disc bulge C5-C6 with bilat hand parasthesias ) Activity/Diet/Wound Care/Special Instructions: Activity: As tolerated. Take breaks as needed. Diet: Heart healthy and carb consistent diet. Avoid salts, or foods with hidden salts such as canned or boxed foods and frozen dinners. Extra salt makes your heart work harder and traps the fluid in your body for longer. Special Instructions: Take all of your medications as directed and remember to keep all of your doctor's appointments and follow-up as needed. Thank you for allowing us to participate in your care, it was truly a pleasure having you for our patient!!! . Discharge Disposition: HOME SELF-CARE
--- NOTE | 2024-05-10 09:55 | MR ---
PRE AND POSTCONTRAST ENHANCED MRI OF THE BRAIN: CLINICAL HISTORY: left arm numbness. Neck pain CONTRAST: Gadavist 11ml. Multiplanar and multispin-echo imaging of the brain was performed both before and after the administr ation of contrast. The ventricles, basal cisterns and sulci overlying the cerebral convexities are within normal limits. There is no evidence for midline shift or mass effect. Acute intracranial hemorrhage or extra-axial collection is not evident. There are no abnormal areas of increased or decreased signal intensity within the brain parenchyma. Following contrast administration, there is no evidence for pathologic enhancement or enhancing mass. The paranasal sinuses and mastoid air cells are well-aerated. IMPRESSION: Unremarkable pre and postcontrast enhanced MRI of the brain. EXAMINATION TYPE: MR brain/cspine wo/w DATE OF EXAM: 05/09/2024 1:40 PM COMPARISON: NONE HISTORY: Neck pain, left arm numbness. CONTRAST: The patient was injected with 11 mL intravenous Gadavist gadolinium contrast. Multiplanar MultiSpin echo imaging of the cervical spine was performed. C2-C3: No evidence for degenerative disc disease. No disc bulge/herniation or protrusion. No Canal stenosis. Foramina are patent bilaterally. C3-C4: No evidence for degenerative disc disease. No disc bulge/herniation or protrusion. No Canal stenosis. Foramina are patent bilaterally. C4-C5: There is evidence of mild disc desiccation with mild posterior central disc bulge. Minimal eff acement of ventral thecal sac. No hakan disc herniation or central stenosis. Moderate left foraminal encroachment. C5-C6: Mild disc desiccation noted. Posterocentral disc protrusion mildly effaces the ventral thecal sac and distorts the central portion of the definite contact. No evidence for central stenosis. Degen erative changes of the cervical, axial joints with mild left foraminal encroachment. C6-C7: Borderline to mild disc desiccation. Small focal disc bulge situated strategically of the open ing of left neural foramen appears to result in mild left foraminal encroachment. No central stenosis or hakan disc herniation. C7-T1: No evidence for degenerative disc disease. No disc bulge/herniation or protrusion. No Canal stenosis. Foramina are patent bilaterally. No cervical spine fracture. There is normal alignment. Cervical spinal cord is of normal signal. C raniovertebral junction relationships are within normal limits. No pathologic enhancement. IMPRESSION: 1. Multilevel mild degenerative disc disease. 2. Posterior central disc protrusion at C5-6. 3. Small disc bulge at C6-7 situated strategically at the opening of the left neural foramen. Left fo raminal encroachment as outlined above.
== END 2024-05-09 16:05 | disposition home or self-care (01) ==
LOC: EC 14:03 → 6NMEDSUR 16:19
PROVIDERS: ADMIT Student in an Organized Health Care Education/Training Program; ATTEND Student in an Organized Health Care Education/Training Program
DX: R07.89 Other chest pain (principal); M54.2 Cervicalgia; R20.0 Anesthesia of skin; I10 Essential (primary) hypertension; E11.9 Type 2 diabetes mellitus without complications; K21.9 Gastro-esophageal reflux disease without esophagitis; Z79.899 Other long term (current) drug therapy; Z79.84 Long term (current) use of oral hypoglycemic drugs; Z79.51 Long term (current) use of inhaled steroids; F10.20 Alcohol dependence, uncomplicated; F17.200 Nicotine dependence, unspecified, uncomplicated; E78.00 Pure hypercholesterolemia, unspecified
CPT/HCPCS: 96372; 99285; 36415; 94640 ×3; 93005 ×2; 93306; 85379; 80061; 80053 ×2; 80048; 84443; 82607; 82746; 83735 ×3; 84484; 85025; 85027 ×2; 85610; 85730; 83036; 71046; 93880; 72125; 70450; 70553; 72156; G0378 ×4; J1644; A9585

== ENCOUNTER → 2024-07-19 | Outpatient (CLI) | payer BC ==
--- NOTE | 2024-07-20 12:05 | CTL ---
EXAMINATION TYPE: CT Low Dose Lung DATE OF EXAM ORDERED: 07/19/2024 HISTORY: 53-year-old male Z8 7.891, former smoker with at least 20 pack-year history. Lung cancer scr eening CT DLP: 86 mGycm Automated exposure control for dose reduction was used. SCREENING VISIT: Baseline COMPARISON: Radiographs 05/06/2024 TECHNIQUE: Low dose computed tomography scan was performed through the chest at 1 mm thick sections a nd reconstructed images in multiple planes at 1 mm and [address] DIAGNOSTIC QUALITY: Satisfactory FINDINGS: The heart is normal size without pericardial. Ectatic aortic root at 3.8 cm. Conventional arch vessel branching anatomy with minimal atheroscleroti c calcifications. Nonenlarged mediastinal lymph nodes, largest 1 cm lower right peritracheal. Otherwise, no thoracic ad enopathy by CT size criteria. Some patchy and strandy subpleural opacity posteromedial right lung baser. There is an underlying 6 mm pulmonary nodule here, axial image 242. 6 mm anterior right midlung pulmonary nodule, axial image 169. 6 mm inferior lingular pulmonary nodule, axial image 207. Mild emphysematous changes. Mild biapical minimal scarring. Mild diffuse bronchial wall thickening. No consolidation or pleural effusion. Visualized upper abdomen shows some mild thickening of the left gland without discrete nodularity. Bones: No osseous destructive process. IMPRESSION: 1. LungRADS 3, probably benign. A few 6 mm pulmonary nodules on baseline screening. Six-month follow- up low-dose CT chest to reassess. 2. COPD with mild emphysema. CT LUNG RAD AND CT CHEST RECOMMENDATION: Lung-Rad 3 Probably Benign: 6 month follow-up LDCT. S Modifier (other clinically significant findings): None
== END | disposition home or self-care (01) ==
LOC: RADCTMAIN 07:51
PROVIDERS: ATTEND Family Medicine
DX: Z12.2 Encounter for screening for malignant neoplasm of respiratory organs (principal); R91.8 Other nonspecific abnormal finding of lung field; J43.9 Emphysema, unspecified; J44.9 Chronic obstructive pulmonary disease, unspecified; Z87.891 Personal history of nicotine dependence
CPT/HCPCS: 71271

== ENCOUNTER → 2025-01-31 | Outpatient (CLI) | payer BC ==
--- NOTE | 2025-01-31 09:03 | CTL ---
EXAMINATION TYPE: CT Low Dose Lung DATE OF EXAM: 01/31/2025 8:29 AM COMPARISON: 07/18/2024 CLINICAL INDICATION: Male, 54 years old with history of Z12.2 LUNG SCREENING Z87.891 FORMER SMOKER; H ISTORY OF SMOKER, history of tobacco use. TECHNIQUE: Multiple axial non-contrast scans were obtained from approximately the lung apices through the upper abdomen. Coronal and sagittal reformatted images were obtained. Low dose technique was uti lized. MIP were created on a separate workstation and submitted for review. CT DLP: 151.2 mGycm, Automated exposure control for dose reduction was used. CT Contrast: Contrast used: None Oral contrast used: None FINDINGS: Lack of intravenous contrast and low dose technique limits the evaluation of the vascular and soft ti ssue structures. LUNGS: No evidence of pulmonary fibrosis. No evidence of focal consolidation, pneumothorax or pleural effusion. Centrilobular emphysema changes. Nodules: RUL: None. RML: None. RLL: 4 mm, previously 6 mm GORGE: Nodule not visualized LLL: None. AIRWAY: Patent and unremarkable. HEART: Size within normal limits. No significant coronary artery calcifications. MEDIASTINUM: No gross evidence of adenopathy. VASCULATURE: No aortic aneurysm. MUSCULOSKELETAL: No acute osseous abnormalities SOFT TISSUES/LYMPH NODES: Unremarkable. LOWER NECK: No significant findings. UPPER ABDOMEN: No significant findings. IMPRESSION: 1. No clinically significant pulmonary nodules. 2. Mild emphysema. CT LUNG RAD AND CT CHEST RECOMMENDATION: Lung-Rad 2 Benign Appearance or Behavior: Continue annual sc reening with LDCT in 12 months. S Modifier (other clinically significant findings): None Recommend smoking cessation (if current smoker), or continuation of smoking cessation (if prior smoke r). Annual screening for lung cancer with low-dose computed tomography is recommended in adults ages 55 to 77 years who have a 30 pack-year smoking history and currently smoke or have quit within the pa st 15 years. Screening should be discontinued once a person has not smoked for 15 years or develops a health problem that substantially limits life expectancy or the ability or willingness to have curat shun lung surgery. Lung rads 2021 [email or web address] [email or web address], , 01/31/2025 9:01 AM
== END | disposition home or self-care (01) ==
LOC: RADCTMAIN 08:06
PROVIDERS: ATTEND Family Medicine
DX: Z12.2 Encounter for screening for malignant neoplasm of respiratory organs (principal); J43.9 Emphysema, unspecified; Z87.891 Personal history of nicotine dependence
CPT/HCPCS: 71271